=== PATIENT | female | born 1955 | race African-American/Black ===

== ENCOUNTER 2016-07-24 16:00 | Observation (INO) | payer SELFPAY ==
--- NOTE | ~2016-07-24 | HP ---
History And Physical [id number] [place]. [address] NAME: CAMERON OJEDA : 55 STATUS : ADM John PAT#: [id number] AGE: 61 ADM/REG DATE : 07/24/16 MR#: [id number] REPORT SERV DATE: 07/25/16 DICTATED BY: EMANI VASQEUZ DATE: 07/25/16 REPORT STATUS : Draft TRANSCRIBED BY: JOSE DATE: 07/25/16 DATE OF ADMISSION: 07/24/2016 PRIMARY CARE PROVIDER: [facility]. ENVIRONMENTAL PROPERTY ASSESSOR: Previously, Ian Rosario M.D., [facility], [facility]. Last seen greater than 3 years ago for hypertension. CHIEF COMPLAINT: Elevated blood pressure and chest pain recently. HISTORY OF PRESENT ILLNESS: A very pleasant, 61-year-old, black female with no known history of CAD, previously followed by Dr. Rosario for hypertension, states that over the last several days since 07/20 her blood pressure has been higher than usual. She reports some readings of 190/100 for which she has taken clonidine every six hours with little improvement in her symptoms. She has also experienced chest pain that radiates to the left neck and down her left arm, described it as pressure. She reports associated nausea and diaphoresis. Denies any shortness of breath, dizziness, or belching. At its most intense, she rates the chest pain an 8/10. At time of interview in the [facility], she rates it a 4/10. The episode lasted approximately 60 minutes in duration. Aspirin and clonidine helped her blood pressure and the discomfort "a little." She denies any personal history of myocardial infarction, stroke, DVT, or pulmonary embolus. The patient was recently treated with an antibiotic for a boil on her buttocks. Denies palpitations. No syncopal episodes. Denies PND or orthopnea. The patient states that she was recently taken off Caduet for cholesterol by her PCP approximately one month ago, she states after a lab work was performed, unclear if it was due to elevated liver function test but her cholesterol profile 03/2016 was total cholesterol 179, HDL 45, LDL 71, and triglycerides 115. The patient denies any myalgia or complaints on that medication for approximately 10 years. PAST MEDICAL HISTORY: 1. AODM. 2. Hypertension. 3. Dyslipidemia. Currently off statin but numbers look good. 4. Positive family history for early stroke. PAST SURGICAL HISTORY: 1. Left breast biopsy (benign). 2. Cholecystectomy. 3. Bilateral cataract repair. 4. Repair of left fractured femur. 5. Hysterectomy. 6. Tonsillectomy. SOCIAL HISTORY: She is with two children. She is the primary caregiver for her History And Physical [address] [address] NAME: CAMERON OJEDA : 55 STATUS : ADM John PAT#: [id number] AGE: 61 ADM/REG DATE : 07/24/16 MR#: [id number] REPORT SERV DATE: 07/25/16 DICTATED BY: EMANI VASQUEZ DATE: 07/25/16 REPORT STATUS : Draft TRANSCRIBED BY: JOSE DATE: 07/25/16 . She does not have an exercise routine. Denies alcohol or illicits. Rarely consumes wine. FAMILY HISTORY: Father remains alive at 86. Mother with a history of hypertension, stroke at 65, at 76. No other embolic events reported in first-degree relatives. REVIEW OF SYSTEMS: A 14-point review of systems performed, significant for HPI including usual home blood pressures of 130/85, otherwise, complete review of systems obtained and negative. ALLERGIES: NO KNOWN DRUG ALLERGIES. HOME MEDICATIONS: Aspirin 81 mg daily, iron 200 mg daily, metoprolol tartrate 50 mg twice daily, multivitamin daily, Micardis 80 mg daily, unknown diabetic medication twice daily. PHYSICAL EXAMINATION: VITAL SIGNS: Bilateral blood pressures on arrival, right 162/95, left 172/89, this morning 170/80, pulse 99, respirations 16, temperature 97.9, O2 saturation 98% on room air, height 5 feet 1 inch, weight 200 pounds, BMI is 38. GENERAL: Cooperative, in no apparent distress. HEENT: Pupils 2 mm, sclera nonicteric. Nares patent. Moist mucous membranes. No xanthelasma. NECK: Trachea midline, no thyromegaly. No JVD. No bruits. LYMPH: No cervical lymphadenopathy. No supraclavicular lymphadenopathy. RESPIRATORY: Left chest tender to palpation on exam eliciting minimal withdrawal. Unlabored respirations. Breath sounds clear bilaterally to posterior auscultation. No wheezes or rhonchi. CARDIOVASCULAR: Regular rate. No murmur, rub or gallop appreciated. Extremities without edema. Pulses 2+ bilaterally. ABDOMEN: Obese, soft, nontender, nondistended, normal bowel sounds auscultated throughout. No organomegaly. SKIN: Warm, dry extremities. No pallor, or cyanosis. PSYCHIATRIC: Appropriate affect. Alert, oriented x3. LABORATORY DATA: Troponin less than 0.02 twice. Potassium 4.2 (previously 3.4), BUN 23, creatinine 1.14, glucose 196, magnesium 1.8. WBC 6.9, hemoglobin 10.4, hematocrit 33.9, and platelet count 202,000. DICTATION ENDS HERE JOSH/JOSE Emani Vasquez, MSN, ENGINEER-BC History And Physical [address] [address] NAME: CAMERON OJEDA : 55 STATUS : ADM John PAT#: [id number] AGE: 61 ADM/REG DATE : 07/24/16 MR#: [id number] REPORT SERV DATE: 07/25/16 DICTATED BY: EMANI VASQUEZ DATE: 07/25/16 REPORT STATUS : Draft TRANSCRIBED BY: JOSE DATE: 07/25/16 / [id number]
--- NOTE | ~2016-07-24 | HP ---
History And Physical [id number] [facility] [place]. [address] NAME: CAMERON OJEDA : 55 STATUS : ADM John PAT#: [id number] AGE: 61 ADM/REG DATE : 07/24/16 MR#: [id number] REPORT SERV DATE: 07/25/16 DICTATED BY: EMANI VASQUEZ DATE: 07/25/16 REPORT STATUS : Draft TRANSCRIBED BY: JOSE DATE: 07/25/16 DATE OF ADMISSION: 07/24/2016 ADDENDUM: LABORATORY DATA: Troponin is less than 0.02 twice. The potassium 4.2 (previously 3.4), BUN 23, creatinine 1.14, glucose 196, and magnesium 1.8. WBC of 6.9, hemoglobin 10.4, hematocrit 33.9, and platelet count 202,000. EKG: Sinus rhythm with sinus arrhythmia and LVH. TMO, 11/2012: Stage 2, 6:13 minutes, 7 METs, negative study. MPI, 2011: Travis stage 2, 6:01 minute, 7 METs, no ischemia. ASSESSMENT AND PLAN: 1. Chest pain with atypical features and somewhat reproducible on exam. The patient has been observed in the CPOU overnight to rule out myocardial infarction. Two negative troponins. EKG appears stable. N.p.o. for MPI today. The patient will be discharged home if low risk, no ischemia. If anything suggestive of ischemia, Cardiology referral will be initiated, otherwise the patient will be asked to follow up with her PCP in one to two weeks with all studies being sent to that office. 2. Hypertension. Add lisinopril 5 daily with PCP follow up instructed to maintain a blood pressure diary. 3. Adult-onset diabetes mellitus. Clarify home medications. Hold metformin. Level 1 sliding scale correction. 4. Dyslipidemia. Off statin for one month for unclear reason. Denies myalgia, reports lab results led to discontinuation of statin. Most recent lipid profile in system, March 2016, total cholesterol 139, HDL 45, LDL 71, triglycerides 115. The patient will follow up with her PCP for further discussion regarding the need for any further statin. JOSH/JOSE Emani Vasquez, MSN, CERTIFIED FAMILY MEDIATOR-BC / [id number] CC: MIKE Aragon, CERTIFIED FAMILY MEDIATOR-BC RIKKI ATKINSON
[~2016-07-24 16:00] MED LIST: CADUET10 MG/20 M PO; CADUET5 MG/20 MG PO; CAT1 PO; GLUCPH PO; LOP25 PO; MICARDIS H80 MG/25 M PO; MICARDIS80 PO; TRADJENTA5 MG PO
[2016-07-24 16:49] LABS: BASOPHILS 0.3 %; BASOPHILS ABSOLUTE 0.02 10/3/uL (0.0-0.16); EOSINOPHILS 7.8 %; EOSINOPHILS ABSOLUTE 0.54 10/3/uL (0.0-0.53); ER CBC TAT 0 Hrs 20 Mins; HEMATOCRIT 33.9 % (36.0-48.0); HEMOGLOBIN 10.4 g/dL (12.0-16.0); IMMATURE GRANULOCYTES 0.3 %; IMMATURE GRANULOCYTES ABSOLUTE 0.02 10/3/uL (0.0-0.11); INTERNATIONAL NORMAL RATI 1.1 UNITS (-); LYMPHOCYTES 29.5 %; LYMPHOCYTES ABSOLUTE 2.03 10/3/uL (0.67-4.30); MEAN CORPUSCULAR HEMOGLOB 21.1 pg (26.0-34.0); MEAN CORPUSCULAR VOLUME 68.6 fL (80-100); MONOCYTES 5.1 %; MONOCYTES ABSOLUTE 0.35 10/3/uL (0.21-1.20); NEUTROPHILS ABSOLUTE 3.92 10/3/uL (2.02-8.40); PARTIAL THROMBO TIME 26.5 SEC (22.5-37.2); PLATELET COUNT 202 10/3/uL (150-400); PROTIME (NOT ORD) 14.2 SEC (12.0-14.5); RBC DISTRIBUTION WIDTH 16.1 % (12.0-16.0); RED CELL COUNT 4.94 10/6/uL (4.0-5.6); WHITE BLOOD CELLS 6.9 10/3/uL (4.5-10.5)
[2016-07-24 16:50] LABS: MANUAL DIFF NO %; MEAN CORPUS HGB CONC 30.7 g/dL (32.0-36.0)
[2016-07-24 16:52] LABS: CALCIUM, SERUM 9.2 MG/DL (8.5-10.4); CHEST PAIN PROFILE TAT 0 Hrs 23 Mins; CHLORIDE, SERUM 103 MMOL/L (96-112); CO2 (CARBON DIOXIDE) 30 MMOL/L (24-34); CREATININE 1.14 MG/DL (0.55-1.02); GFR AFRICAN AMERICAN 60 ML/MIN (>=60); GFR NON AFRICAN AMERICAN 52 ML/MIN (>=60); POTASSIUM, SERUM 3.4 MMOL/L (3.5-5.3); SODIUM, SERUM 141 MMOL/L (135-148); TROPONIN I <0.02 NG/ML (<0.05)
[2016-07-24 16:53] LABS: BUN (BLOOD UREA NITROGEN) 23 MG/DL (6-23); GLUCOSE, SERUM 196 MG/DL (60-99)
[2016-07-24] MEDS ORDERED: MICARDIS80 PO (23:42)
[2016-07-24] MEDS ORDERED: EZFE 200200 MG PO (23:43)
[2016-07-24] MEDS ORDERED: MULTIVITAMI1 PO (23:43)
[2016-07-24] MEDS ORDERED: LOP50 PO (23:43)
[2016-07-24] MEDS ORDERED: ASAB PO (23:43)
[2016-07-24] MEDS ORDERED: DIABETIC MEDICATION PO (23:44)
[2016-07-25] MEDS ORDERED: JENTADUETO 2.51 EAC2 PO (10:16)
[2016-07-25] MEDS ORDERED: PRIN5 PO (15:08)
[2016-10-02] MEDS ORDERED: PRIN20 PO (16:42)
[2016-10-02] MEDS ORDERED: NORV10 PO (16:42)
[2016-10-02] MEDS ORDERED: P20 PO (16:43)
== END 2016-07-25 16:29 | disposition home or self-care (01) ==
LOC: ER 16:00 → CDU1 23:21
PROVIDERS: Emergency Medicine
DX: R07.89 Other chest pain (principal); E11.9 Type 2 diabetes mellitus without complications; I10 Essential (primary) hypertension; E78.5 Hyperlipidemia, unspecified; Z90.49 Acquired absence of other specified parts of digestive tract; Z98.42 Cataract extraction status, left eye; Z98.41 Cataract extraction status, right eye; Z90.710 Acquired absence of both cervix and uterus; Z90.89 Acquired absence of other organs; Z79.82 Long term (current) use of aspirin
CPT/HCPCS: 71020; 78452; 80048; 82962; 83735; 84132; 84484; 85025; 85610; 85730; 93005; 93017; 96374; 99285; A9270-GY; A9502; G0378; J0360